=== PATIENT | male | born 1975 ===

== ENCOUNTER 2018-12-22 17:55 | Emergency (ER) | payer OTHER ==
[~2018-12-22] VITALS: Ht 188 cm; Wt 90.7 kg
[2018-12-22] MEDS ORDERED: NIZORAL SHAMPO120 ML TOP (21:09)
[2018-12-22] MEDS ORDERED: CLOTRIMAZOLE15 GM TOP (21:09)
[2018-12-22] MEDS ORDERED: CORTIZONE 1028 GM (21:13)
== END 2018-12-22 21:13 | disposition home or self-care (01) ==
LOC: ER 17:55
DX: B35.4 Tinea corporis (principal)

== ENCOUNTER 2019-06-02 18:32 | Emergency (ER) | payer OTHER ==
[~2019-06-02] VITALS: Ht 182.9 cm; Wt 102.1 kg
[~2019-06-02 18:32] MED LIST: CLOTRIMAZOLE15 GM TOP; CORTIZONE 1028 GM; NIZORAL SHAMPO120 ML TOP
[2019-06-02] MEDS ORDERED: ZITHROMAX500 MG PO (22:25)
== END 2019-06-02 22:43 | disposition home or self-care (01) ==
LOC: ER 18:32
DX: R05 Cough (principal)

== ENCOUNTER 2020-06-08 17:59 | Emergency (ER) | payer OTHER ==
[~2020-06-08] VITALS: Ht 188 cm; Wt 104.3 kg
[~2020-06-08 17:59] MED LIST changes: +ZITHROMAX500 MG PO
== END 2020-06-08 22:35 | disposition home or self-care (01) ==
LOC: ER 17:59
DX: R10.13 Epigastric pain (principal); R63.0 Anorexia; Z20.828 Contact with and (suspected) exposure to other viral communicable diseases